=== PATIENT | female | born 1980 | race Caucasian/White ===

== ENCOUNTER 2020-11-13 14:17 | Emergency (ER) | payer OTHER ==
[~2020-11-13] VITALS: Ht 162.6 cm; Wt 104.1 kg
[2020-11-13] MEDS ORDERED: AMOXICILLIN 8751 TAB PO (15:29)
[2020-11-13 16:07] VITALS: BP 126/74; PULSE 78; TEMP 98.7
== END 2020-11-13 16:05 | disposition home or self-care (01) ==
LOC: COL.ER 14:17
DX: S01.312A Laceration without foreign body of left ear, initial encounter (principal); S80.211A Abrasion, right knee, initial encounter; F17.200 Nicotine dependence, unspecified, uncomplicated; Z88.6 Allergy status to analgesic agent; W18.09XA Striking against other object with subsequent fall, initial encounter

== ENCOUNTER 2021-03-04 09:35 | Day surgery (SDC) | payer OTHER ==
[~2021-03-04] VITALS: Ht 162.6 cm; Wt 105.9 kg
[~2021-03-04 09:35] MED LIST: AMOXICILLIN 8751 TAB PO
[2021-03-04] MEDS ORDERED: NEURONTIN300 MG/CAP PO (10:31)
[2021-03-04] MEDS ORDERED: LASIX 40MG TABL40 MG PO (10:31)
[2021-03-04] MEDS ORDERED: AMITRIPTYLINE H25 M1 PO (10:32)
[2021-03-04] MEDS ORDERED: KEPPRA 500MG500 MG PO (10:32)
[2021-03-04] MEDS ORDERED: FLEXERIL 1010 MG/TAB PO (10:34)
[2021-03-04] MEDS ORDERED: PRAVACHOL 40MG40 MG PO (10:34)
[2021-03-04] MEDS ORDERED: INDERAL 20MG20 MG PO (10:35)
[2021-03-04] MEDS ORDERED: PEPCID40 MG PO (10:35)
[2021-03-04 10:36] VITALS: BP 103/66; PULSE 72; TEMP 98.5
[2021-03-04 12:43] VITALS: BP 86/39; PULSE 78; TEMP 98.3
[2021-03-04] MEDS ORDERED: ULTRAM 50MG TAB50 MG PO (12:54)
[2021-03-04 13:00] VITALS: BP 110/73; PULSE 77
--- NOTE | 2021-03-04 13:00 | NUR ---
PATIENT STATES SHE WOULD LIKE WATER AND TOAST. STATES SHE HAS A HEADACHE. FLUIDS COMPLETED, 1000ML OF LR INFUSED. BP IMPROVED BACK TO BASELINE. WILL CONTINUE TO MONITOR.
[2021-03-04 13:15] VITALS: BP 98/53; PULSE 62
--- NOTE | 2021-03-04 13:15 | NUR ---
AT BEDSIDE TO DRIVE PATIENT HOME. TOLERATED FOOD AND FLUIDS WITHOUT DIFFICULTY. CALL LINDQUIST WITHIN REACH.
[2021-03-04 13:45] VITALS: BP 100/64; PULSE 69
--- NOTE | 2021-03-04 13:45 | NUR ---
PATIENT STATES SHE WOULD LIKE TYLENOL AT THIS TIME FOR HEADACHE. STATES SHE WOULD LIKE TO GO HOME AT THIS TIME.
--- NOTE | 2021-03-04 13:45 | NUR ---
IV REMOVED WITHOUT DIFFICULTY. PATIENT TO GET DRESSED.
--- NOTE | 2021-03-04 14:20 | NUR ---
DISCHARGE INSTRUCTIONS REVIEWED AND SIGNED ALL QUESTIONS ANSWERED. PATIENT BROUGHT DOWN LOBBY VIA WHEEL CHAIR. TO BE DRIVEN HOME BY .
--- NOTE | 2021-03-04 14:36 | NUR ---
PATIENT BROUGHT BACK TO [facility] [place] [facility] VIA CART. PLACED ON MONITORS, VITAL SIGNS WITH HYPOTENSION. PER LIFT BUILDER WHOLE MANN BOLUS THE REST OF IV FLUIDS. FLUIDS INFUSING WITHOUT DIFFICULTY. PATIENT REMAINS ON OXYGEN 6L VIA MASK AND ORAL AIRWAY IN PLACE. PATIENT RESPONDED TO VERBAL STIMULI AND AIRWAY WAS REMOVED. PATIENT STATES SHE WANTS TO NAP AT THIS TIME. BIOPSY SITE CLEAN DRY INTACT WITH BACITRACIN IN PLACE. CALL LINDQUIST WITHIN REACH. WILL CONTINUE TO MONITOR.
== END 2021-03-04 11:42 | disposition home or self-care (01) ==
LOC: SDCO 09:35
DX: R51.9 Headache, unspecified (principal); R56.9 Unspecified convulsions; K21.9 Gastro-esophageal reflux disease without esophagitis; E78.5 Hyperlipidemia, unspecified; J45.909 Unspecified asthma, uncomplicated; F41.9 Anxiety disorder, unspecified; R20.2 Paresthesia of skin; H81.09 Meniere's disease, unspecified ear; Z20.822 Contact with and (suspected) exposure to COVID-19; F32.9 Major depressive disorder, single episode, unspecified; Z88.7 Allergy status to serum and vaccine; F17.210 Nicotine dependence, cigarettes, uncomplicated; Z79.899 Other long term (current) drug therapy; Z79.82 Long term (current) use of aspirin; Z79.1 Long term (current) use of non-steroidal anti-inflammatories (NSAID)
CPT/HCPCS: J0690; J2405; J2704; J3010; J7120

== ENCOUNTER → 2023-04-28 | Outpatient (RCR) | payer OTHER ==
[~2023-04-28] MED LIST changes: +AMITRIPTYLINE H25 M1 PO; +CEPHALEXIN500 M1 PO; +FLEXERIL 1010 MG/TAB PO; +INDERAL 20MG20 MG PO; +KEPPRA 500MG500 MG PO; +LASIX 40MG TABL40 MG PO; +NAPROSYN500 MG PO; +NEURONTIN300 MG/CAP PO; +NORCO 325 MG-51 TAB PO; +PEPCID40 MG PO; +PRAVACHOL 40MG40 MG PO; +PRISTIQ 50 MG T50 MG PO; +QULIPTA30 MG PO; +SAXENDA6 MG/ML SQ; +ULTRAM 50MG TAB50 MG PO
== END | disposition home or self-care (01) ==
LOC: MKS.ESL.PT → WSPT 04-18 14:15 → MKS.ESL.PT 04-21 11:00
DX: S83.209D Unspecified tear of unspecified meniscus, current injury, unspecified knee, subsequent encounter (principal); X58.XXXD Exposure to other specified factors, subsequent encounter

== ENCOUNTER 2023-05-26 08:00 | Outpatient (RCR) | payer OTHER | END 2023-05-28 | disposition home or self-care (01) | LOC: MKS.ESL.PT | DX: S83.209D Unspecified tear of unspecified meniscus, current injury, unspecified knee, subsequent encounter (principal) ==

== ENCOUNTER 2023-06-29 07:12 | Day surgery (SDC) | payer OTHER ==
[~2023-06-29] VITALS: Ht 162.6 cm; Wt 93.9 kg
[2023-06-29 07:40] VITALS: BP 110/57; PULSE 74; TEMP 98.1
[2023-06-29] MEDS ORDERED: AMITRIPTYLINE H50 M1 PO (07:47)
[2023-06-29] MEDS ORDERED: RESTORIL 77.5 MG/CAP PO (07:48)
[2023-06-29 08:04] VITALS: BP 110/57; PULSE 74; TEMP 98.1
--- NOTE | 2023-06-29 08:08 | NUR ---
0726-PT ARRIVED TO [facility] [place] [facility] VIA AMBULATION, ALERT AND ORIENTED ON ARRIVAL. SON PRESENT WITH PT. CONSENTS SIGNED AND REVIEWED, PLAN OF CARE REVIEWED AND QUESTIONS INVITED. PT CHANGED INTO GOWN INDEPENDENTLY, WARM BLANKET PROVIDED. VITAL SIGNS TAKEN, VSS. 20 G IV CATHETER STARTED TO RAC. MEDICATIONS REVIEWED, PHYSICAL ASSESSMENT UNREMARKABLE. PT REPORTS PAIN TO RIGHT KNEE ON ADMISSION 02/05. CALL LIGHT PLACED WITHIN REACH, BED IN LOWEST POSITION, AWAITING SURGERY
[2023-06-29] MEDS ORDERED: CEPHALEXIN500 M1 PO (10:02)
[2023-06-29] MEDS ORDERED: NORCO 325 MG-51 TAB PO (10:02)
[2023-06-29] MEDS ORDERED: MOTRIN 800800 MG/TAB PO (10:02)
[2023-06-29 10:40] VITALS: BP 103/67; PULSE 89; TEMP 98
[2023-06-29 10:55] VITALS: BP 96/69; PULSE 86
--- NOTE | 2023-06-29 11:35 | NUR ---
1040-REPORT OBTAINED FROM MELANIE PEARL. PT ARRIVED VIA CART TO [facility] [place] [facility], ALERT AND ORIENTED ON ARRIVAL. VITAL SIGNS TAKEN, VSS. PT REPORTS NAUSEA IMPROVED, PAIN LEVEL 5/10. RLE ELEVATED AND ICE PACK REMAINS IN PLACE. PO INTAKE OFFERED 1055-PT TOLERATING PO INTAKE. VSS 1107-PO PRN PAIN MEDICATION GIVEN. DISCHARGE INSTRUCTIONS REVIEWED WITH PT AND SON, QUESTIONS INVITED. PT AMBULATED TO BATHROOM WITH SBA, CHANGED INTO PERSONAL CLOTHING INDEPENDENTLY 1120-IV CATHETER DISCONTINUED, TIP INTACT. PRESSURE HELD AND BANDAGE APPLIED. 1130-PT DISCHARGED HOME TO [facility] VIA WHEELCHAIR, ACCOMPANIED BY SON. ALL BELONGINGS AND DC PAPERWORK SENT WITH PT. 1
== END 2023-06-29 11:30 | disposition home or self-care (01) ==
LOC: SDCO 07:12
DX: M22.2X1 Patellofemoral disorders, right knee (principal); S83.207A Unspecified tear of unspecified meniscus, current injury, left knee, initial encounter; S83.241A Other tear of medial meniscus, current injury, right knee, initial encounter; F17.210 Nicotine dependence, cigarettes, uncomplicated
CPT/HCPCS: J0171; J0665; J0690; J1100; J1885; J2250; J2405; J2550; J3010; J7120

== ENCOUNTER 2023-08-25 08:00 | Outpatient (RCR) | payer BC ==
[~2023-08-25 08:00] MED LIST changes: +AMITRIPTYLINE H50 M1 PO; +MOTRIN 800800 MG/TAB PO; +RESTORIL 77.5 MG/CAP PO
== END 2023-08-28 | disposition home or self-care (01) ==
LOC: MKS.ESL.PT
DX: Z98.890 Other specified postprocedural states (principal)

== ENCOUNTER 2023-09-09 08:00 | Outpatient (RCR) | payer BC | END 2023-09-09 10:00 | disposition home or self-care (01) | LOC: WSPT 08:00 | DX: Z98.890 Other specified postprocedural states (principal) ==